=== PATIENT | male | born 1970 | race Caucasian/White ===

== ENCOUNTER 2020-11-05 11:08 | Emergency (ER) | payer BC ==
[~2020-11-05] VITALS: Ht 182.9 cm; Wt 117.9 kg
[2020-11-05] MEDS ORDERED: HYDROCODONE/APAP 7.5MG-325MG 1 EA TAB PO NR (11:45)
[2020-11-05] MEDS ORDERED: KETOROLAC TROMETHAMINE 60 MG/2 ML VIAL IM NR (11:45)
[2020-11-05 12:02] VITALS: BP 130/65
== END 2020-11-05 12:05 | disposition home or self-care (01) ==
LOC: ER 11:34
DX: M79.662 Pain in left lower leg (principal); S86.812A Strain of other muscle(s) and tendon(s) at lower leg level, left leg, initial encounter; Y93.02 Activity, running; Y92.008 Other place in unspecified non-institutional (private) residence as the place of occurrence of the external cause; I10 Essential (primary) hypertension
CPT/HCPCS: 99282; J1885